=== PATIENT | female | born 1995 | race Caucasian/White ===

== ENCOUNTER 2023-06-09 02:02 | Emergency (ER) | payer MEDICAID, SELFPAY ==
[2023-06-09 02:06] VITALS: BP 105/71; PULSE 85; RESP 18; TEMP 36.5; O2SAT 98; BMI 18.2
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
[2023-06-09 02:46] VITALS: BP 117/70; PULSE 78; RESP 20; O2SAT 97
[2023-06-09 02:55] LABS: HCG Qualitative Urine. Negative (Negative)
[2023-06-09 03:03] LABS: Urine Appearance SL Hazy (CLEAR); Urine Color Light yellow (Yellow)
[2023-06-09 03:04] LABS: Add Urine Culture? No; Add Urine Microscopic? YES; Bacteria Urine 1+ /hpf; Bilirubin Urine Neg (Negative); Blood Urine Neg (Negative); Glucose Urine UA Norm (Normal); Ketones Urine Negative (Negative); Leukocyte Esterase Urine 2+ (Negative); Mucus Urine 2+ /hpf; Nitrate Urine Negative (Negative); Protein Urine Neg (Negative); Specific Gravity, Urine 1.015 (1.005-1.030); Squamous Epithelial Cell Urine 15-25 /hpf (0-5); Urobilinogen Urine Neg (Negative); pH Urine 6.5 (5-7)
[2023-06-09 03:14] VITALS: RESP 18; O2SAT 99
[2023-06-09] MEDS: oxyCODONE-APAP 5-325 mg Tablet 2 TAB PO (03:14)
[2023-06-09 04:10] VITALS: BP 99/73; PULSE 86; RESP 16; O2SAT 97
[2023-06-09 04:32] VITALS: BP 107/62; PULSE 77; RESP 18; O2SAT 98
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
[2023-06-09 04:59] VITALS: BP 103/63; PULSE 80; RESP 18; O2SAT 98
== END 2023-06-09 05:00 | disposition home or self-care (01) ==
PROVIDERS: Emergency Provider Emergency Medicine
DX: S30.0XXA Contusion of lower back and pelvis, initial encounter (principal); Y04.2XXA Assault by strike against or bumped into by another person, initial encounter; Y99.0 Civilian activity done for income or pay; N39.0 Urinary tract infection, site not specified
CPT/HCPCS: 74176; 81001; 81025; 99284

== ENCOUNTER 2025-01-07 11:54 | Emergency (ER) | payer MEDICAID, SELFPAY ==
--- OUTSIDE RECORDS SUMMARY | 2021-07-16 02:00 | XMS_ITS | Continuity of Care Document ---
Author Organization [facility] Address [facility] [address] Phone Care Team Providers Care Car Wash Attendant Automatic Name Role Phone MD BABAK, NEAL Unavailable Unava ilable Allergies, Adverse Reactions, Alerts Substance Reaction Status Criticality No Known Allergies Active No Inform ation Medications Medication Instructions Dosage Effective Dates (start - stop) Status Comments Vitamin 27 mg iron-0.8 mg tablet take 1 tablet by oral route every day - Active Procedures Procedure Date BPP WITH OUT NST DOPPLER VELOCIMETRY, , UMBILICAL AR GEO REPEAT ULTRASOUND BPP WITH OUT NST DOPPLER VELOCIMETRY, , UMBILICAL AR GEO BPP WITH OUT NST DOPPLER VELOCIMETRY, , UMBILICAL AR GEO DOPPLER VELOCIMETRY, , UMBILICAL AR GEO REPEAT ULTRASOUND BPP WITH OUT NST BPP WITH OUT NST DOPPLER VELOCIMETRY, , UMBILICAL AR GEO REPEAT ULTRASOUND BPP WITH OUT NST DOPPLER VELOCIMETRY, , UMBILICAL AR GEO BPP WITH OUT NST DOPPLER VELOCIMETRY, , UMBILICAL AR GEO REPEAT ULTRASOUND BPP WITH OUT NST DOPPLER VELOCIMETRY, , UMBILICAL AR GEO BPP WITH OUT NST DOPPLER VELOCIMETRY, , UMBILICAL AR GEO REPEAT ULTRASOUND BPP WITH OUT NST DOPPLER VELOCIMETRY, , UMBILICAL AR GEO BPP WITH OUT NST DOPPLER VELOCIMETRY, , UMBILICAL AR GEO DOPPLER VELOCIMETRY, , UMBILICAL AR GEO LIMITED ULTRASOUND EST PT, MODERATE VISIT REPEAT ULTRASOUND DOPPLER VELOCIMETRY, , UMBILICAL AR GEO COMPLETE OB US Advance Directives Directive Yes / No Effective Date File Name No Information Encounters Encounter Description Practice Location Reason(s) For Visit Diagnoses Date Provider Providers Copied on Encounter [facility], [address] [place] [address], [id number] , tel:[phone] [facility] Maternal care for other known or suspected poor growthWeeks Gestation of 2 MD NEAL CALLAHAN. [facility] [place], [address], [id number], . tel:[phone] Referring Provider: LISETH DOVE, [address] [place] [address], [id number]. tel:[phone] [facility], [address] [place] [address], [id number] , [phone] [facility] Weeks Gestation of PregnancyMaternal care for other known or suspected poor growth 2 MD NEAL CALLAHAN. [address] [place], [address], [id number], . tel:[phone] Referring Provider: LISETH DOVE, [address] [place] [address], [address]. tel:[phone] [facility], [address] [place] [address] [address], [facility], [place], [id number] , [place] tel: [phone] [facility] Maternal care for other known or suspected poor growthWeeks Gestation of 2 MD NEAL CALLAHAN. [address] [place], [facility] [address], [place], [place], [id number], [place]. tel:[phone] Referring Provider: LISETH DOVE, [address] [place] [address], [address]. tel:[phone] [facility], [address] [place] [address], [facility], [place], [id number] , [place] tel: [phone] [facility] Maternal care for other known or suspected poor growthWeeks Gestation of 2 MD NEAL CALLAHAN. [address] [place], [facility] [address], [place], [id number], [place]. tel:[phone] Referring Provider: LISETH DOVE, [address] [place] [address], [address]. tel:[phone] [facility], [address] [place] [address], [facility], [place], [id number] , [place] tel: [phone] [facility] Weeks Gestation of PregnancyMaternal care for other known or suspected poor growth 2 MD NEAL CALLAHAN. [address] [place], [facility] 100, [place], [place], [id number], [place]. tel:[phone] Referring Provider: LISETH DOVE, [address] [place] [address], [address]. tel:[phone] [facility], [address] [place] [address], [facility] [place], [id number] , [place] tel: [phone] [facility] Weeks Gestation of PregnancyMaternal care for other known or suspected poor growth May- 1 MD JAMMIE BATISTA. [address], [place], [id number], [place]. tel:[phone] Referring Provider: LISETH DOVE, [address] [place] [address], [address]. tel:[phone] [facility], [address] [place] [address], [facility], [place], [id number] , [place] tel:[phone] [facility] Maternal care for other known or suspected poor growthWeeks Gestation of 1 MD JAMMIE BATISTA. [address], [place] [address], [place], [place], [id number], [place]. tel:[phone] Referring Provider: LISETH DOVE, [address] [place] [address], [address]. tel:[phone] [facility], [address] [place] [address], [place], [id number] , [place] tel:[phone] [facility] Weeks Gestation of PregnancyMaternal care for other known or suspected poor growth 1 MD JAMMIE BATISTA. [address], [place], [place], [place], [id number], [place]. [phone] Referring Provider: LISETH DOVE, [address] [place] [address], [address]. tel:[phone] [facility], [address] [place] [address], [place], [id number] , [place] tel:[phone] [facility] Weeks Gestation of PregnancyMaternal care for other known or suspected poor growth 1 MD JAMMIE BATISTA. [address], [place], [id number], [place]. tel:[phone] Referring Provider: LISETH DOVE, [address] [place] [address], [address]. tel:[phone] [facility], [address] [place] [address], [place], [place], [id number] , [place] tel:[phone] [facility] Maternal care for other known or suspected poor growthWeeks Gestation of 1 MD NEAL CALLAHAN. [address] [place], [address], [id number], [place]. tel:[phone] Referring Provider: LISETH PÉREZLS, [address] [place] [address], [address]. tel:[phone] [facility], [address] [place] [address], [place], [place], [id number] , [place] tel:[phone] [facility] Weeks Gestation of PregnancyMaternal care for other known or suspected poor growth 1 MD NEAL CALLAHAN. [address] [place], [address], [id number], [place]. tel:[phone] Referring Provider: LIESTH DOVE, [address] [place] [address], [address]. tel:[phone] [facility], [address] [place] [address], [place], [place], [id number] , [place] tel:[phone] [facility] Maternal care for other known or suspected poor growthWeeks Gestation of 1 MD JAMMIE BATISTA. [address], [place], [place], [id number], [place]. tel:[phone] Referring Provider: LISETH DOVE, [address] [place] [address], [address]. tel:[phone] EST PT, MODERATE VISIT [facility], [address] [place] [address], [facility], [place], [id number] , [place] [phone] [facility] Growth Restriction (IUGR)Supervision of with insufficient careWeeks Gestation of 1 MD NEAL CALLAHAN. [address] [facility], [place], [id number], [place]. tel:[phone] Referring Provider: LISETH DOVE, [address] [place] [address] [place] [address], [address]. tel:[phone] [facility], [address] [place], [place] [address], [place], [place], [id number] , [place] tel:[phone] [facility] Encounter for screening for malformationsWeeks Gestation of PregnancySupervisio n of with insufficient care 1 MD JAMMIE BATISTA. [address] [facility] [place], [id number], [place]. tel:[phone] Referring Provider: LISETH DOVE, [facility]5 [facility] [place] [address] [place] [address], [address]. tel:[phone] Family History Family Member Type Diagnosis Age At Onset No Information Payers Payer name Insurance type Covered libertarian ID Authoriza tigilma(s) [facility] [id number] Social History Type Description Quantity Date Captured Comments Sex Female Smoking Status No Information Vital Signs Date / Time: Height Weight BMI Pulse Rate Blood Pressure Temperature Respiratory Rate Body Surface Area Head Circumference BMI percentile Pulse Ox Inhaled Ox 148.00 lbs Chief Complaint And Reason For Visit No Information History Of Present Illness Encounter Date Complaint History Of Prese nt Illness No Information Instructions Date Instruction Additional Infor mation No Information Assessments Type Assessment Date No Information
--- OUTSIDE RECORDS SUMMARY | 2025-01-07 11:58 | XMS_ITS | Clinical Summary ---
Author Organization [facility] Address [address] [place] [address] Care Team Providers Care Nurses' Registry Director Name Role Phone Unavailable Primary Care Provider Unavailabl e Social History Tobacco Use Types Packs/Day Years Used Date Smoking Tobacco: Never Assessed Comments Unknown Sex and Gender Information Value Date Recorded Sex Assigned at Not on file Legal Sex Female 9:38 AM CDT Gender Identity Not on file Sexual Orientation Not on file Plan of Treatment Not on file
--- OUTSIDE RECORDS SUMMARY | 2025-01-07 11:58 | XMS_ITS | Encounter Summary ---
Author Organization [facility] Address [address] [place] [address] Care Team Providers Care Home Fire Alarm Installer Name Role Phone Unavailable Primary Care Provider Unavailabl e Encounter Details Date Type Department Care Team (Late st Contact Info) Description 07/21/2012 Orders Only [facility] Radiology [address] [facility] [place] [address] System, Provider Not In, [address] [place] [address] Social History Tobacco Use Types Packs/Day Years Used Date Smoking Tobacco: Never Assessed Comments Unknown Sex and Gender Information Value Date Recorded Sex Assigned at Not on file Legal Sex Female 9:38 AM CDT Gender Identity Not on file Sexual Orientation Not on file documented as of this encounter Plan of Treatment Not on file documented as of this encounter Procedures Procedure Name Priority Date/Time Associated Diagnosis Comments OUTSIDE IMAGES 07/21/2012 12:02 PM STONEWORKER documented in this encounter Results * Outside Images (07/21/2012 12:02 PM STONEWORKER) Anatomical Region Laterality Modality N/A Radiographic Shruti ging 07/21/2012 12:0 2 PM STONEWORKER Narrative 07/21/2012 12:02 PM STONEWORKER Historic images from [facility] exist and can be viewed by using the hyperlink to access qualifyor pacs: X-Ray, Knee Procedure Note System, Provider Not In - 06/30/2018 Historic images from [facility] exist and can be viewed by using thehyperlink to access qualifyor pacs: X-Ray, Knee us Provider Not In System MD [facility] Final Result documented in this encounter Visit Diagnoses Not on filedocumented in this encounter
[2025-01-07 12:15] VITALS: BP 100/65; PULSE 70; RESP 17; TEMP 36.7; O2SAT 99; BMI 18.2
--- NOTE | 2025-01-07 14:13 | W.ED.BACK ---
HPI - Back Pain/Injury General: Chief Complaint: Back Pain/Injury Stated Complaint: low back pain Time Seen by Provider: 01/07/25 13:32 History of Present Illness: 29-year-old female presents emergency room complaining of mid back pain intermittent sharp stabbing pain that radiates up to her head she has pain and burning with urination last couple days no fever. She had no sitting rest no cough or shortness of breath. Associated symptoms: Deny abdominal pain, chills, dysuria, fever(s) or urinary urgency Related Data Home Medications ?Medication ?Instructions ?Recorded ?Confirmed No Known Home Medications 01/07/25 01/07/25 Allergies Allergy/AdvReac Type Severity Reaction Status Date / Time No Known Allergies Allergy Verified 01/07/25 12:20 Review of Systems Const: Denies: fever(s) or chills Card: Denies: chest pain Resp: Denies: dyspnea GI: Denies: abdominal pain : Denies: dysuria, urinary frequency or urinary urgency Musc: Denies: neck pain or back pain Skin/Breast: Denies: rash [facility] Female Reproductive History: Date of last menstrual period: 12/26/24 Physical Exam Const: GENERAL APPEARANCE: cooperative ORIENTATION/CONSCIOUSNESS: Yes awake, Yes oriented to person, Yes oriented to place and Yes oriented to time HENMT: COMMON NORMALS: normocephalic, atraumatic and hearing grossly normal bilaterally HEAD & SCALP: normocephalic and atraumatic Resp: COMMON NORMALS: normal respiratory effort, No retractions, No use of accessory muscles and clear to auscultation bilaterally AUSCULTATION: clear to auscultation bilaterally Cardio: COMMON NORMALS: regular rate, regular rhythm and No murmurs present (Cardio) RATE: regular rate RHYTHM: regular rhythm GI: COMMON NORMALS: Soft to palpation and No hepatosplenomegaly present AUSCULTATION: Yes normoactive bowel sounds PALPATION: Yes Soft to palpation, No Tenderness to palpation present (GI), No Guarding due to palpation present (GI) and Yes No hepatosplenomegaly present : BLADDER/KIDNEY EXAM: Yes CVA tenderness Back/Pelvis: GENERAL BACK: Yes CVA tenderness CVA tenderness: left Extremity: COMMON NORMALS: normal to inspection, capillary refill normal, no clubbing, cyanosis or edema, no calf tenderness and no pedal edema Neuro: SENSORIUM/ORIENTATION: Yes oriented to person, Yes oriented to place and Yes oriented to time Skin: COMMON NORMALS: no rashes or lesions noted GENERAL SKIN EXAM: no rashes or lesions noted Course Vital Signs: Vital signs: Vital Signs Temperature 98.1 F 01/07/25 12:15 Pulse Rate 64 01/07/25 17:36 Respiratory Rate 17 01/07/25 12:15 Blood Pressure 114/77 01/07/25 17:36 Pulse Oximetry 99 01/07/25 17:36 Oxygen Delivery Me thod Room Air 01/07/25 14:20 MDM - Back Pain/Injury Medical Decision Making Patient has no sign of varicella-zoster. Initially on exam she appeared to have a pyelonephritis or possibly nephrolithiasis however both of those were excluded by labs and imaging. CT does not show any signs of bowel obstruction there is no fluid in the pelvis suggestive of an ovarian cyst. No cystitis no nephrolithiasis no hernias. Her symptoms are not compatible with nerve impingement at this time. Suspect this is musculoskeletal and lumbar strain she is feeling fine at this point Offered medications patient declined we will discharge her home have her follow-up with her primary care doctor Medical Records I reviewed the patient's medical records. Labs I reviewed the patient's lab results. 01/07/25 13:55 01/07/25 13:55 Radiology Impressions Abdomen/Pelvis CT 01/07/25 14:53 IMPRESSION: 1. No bowel obstruction or inflammatory process associated with the bowel. 2. No free air or significant free fluid in the abdomen or pelvis. 3. No evidence of appendicitis. 4. No hydronephrosis or renal calculus. No stone in the bladder. Laboratory Results WBC 5.99 10^3/uL (3.29-11.43) 01/07/25 13:55 RBC 4.02 10^6/uL (3.85-5.65) 01/07/25 13:55 Hgb 11.30 g/dL (11.27-16.99) 01/07/25 13:55 Hct 35.4 % (36-47) L 01/07/25 13:55 MCV 88.1 fl (85-98) 01/07/25 13:55 MCH 28.1 pg (27-33) 01/07/25 13:55 MCHC 31.9 g/dL (30-55) 01/07/25 13:55 RDW 13.2 % (12.1-15.1) 01/07/25 13:55 Plt Count 278 10^3/cmm (157-399) 01/07/25 13:55 MPV 11.4 fL (7.4-10.4) H 01/07/25 13:55 Neut % (Auto) 68.7 % 01/07/25 13:55 Lymph % (Auto) 20.2 % 01/07/25 13:55 [place] % (Auto) 9.8 % 01/07/25 13:55 Eos % (Auto) 0.5 % 01/07/25 13:55 Baso % (Auto) 0.5 % 01/07/25 13:55 Neut # (Auto) 4.11 10^3/uL (1.8-7.7) 01/07/25 13:55 Lymph # (Auto) 1.2 10^3/uL (0.8-4.8) 01/07/25 13:55 [place] # (Auto) 0.6 10^3/uL (0.2-0.9) 01/07/25 13:55 Eos # (Auto) 0.0 10^3/uL (0.0-0.8) 01/07/25 13:55 Baso # (Auto) 0.0 10^3/uL (0.0-0.1) 01/07/25 13:55 Nucleated RBC % (auto) 0 % 01/07/25 13:55 Nucleated RBCs # 0.0 /100WBC 01/07/25 13:55 Sodium 139 mmol/L (136-145) 01/07/25 13:55 Potassium 4.2 mmol/L (3.5-5.1) 01/07/25 13:55 Chloride 102 mmol/L (98-107) 01/07/25 13:55 Carbon Dioxide 25 mmol/L (22-29) 01/07/25 13:55 Anion Gap 16.2 (5-19) 01/07/25 13:55 BUN 7 mg/dL (6-20) 01/07/25 13:55 Creatinine 0.6 mg/dL (0.5-0.9) 01/07/25 13:55 GFR Calculation 117.4 mL/min (90-130) 01/07/25 13:55 Glucose 78 mg/dL (65-115) 01/07/25 13:55 Calculated Osmolality 285 mOsm/kg (285-295) 01/07/25 13:55 Calcium 9.6 mg/dL (8.5-10.5) 01/07/25 13:55 Total Bilirubin 0.2 mg/dL (0.15-1.2) 01/07/25 13:55 AST 11 U/L (0-32) 01/07/25 13:55 ALT 8 U/L (0-33) 01/07/25 13:55 Alkaline Phosphatase 76 U/L (35-105) 01/07/25 13:55 Total Protein 7.3 g/dL (6.6-8.7) 01/07/25 13:55 Albumin 4.1 g/dL (3.5-5.2) 01/07/25 13:55 Globulin 3.2 g/dL (1.3-4.6) 01/07/25 13:55 HCG, Qual Negative (Negative) 01/07/25 13:55 Urine Color Yellow (Yellow) 01/07/25 13:57 Urine Appearance Clear (CLEAR) 01/07/25 13:57 Urine pH 6.0 (5-7) 01/07/25 13:57 Ur Specific [place] 1.009 (1.005-1.030) 01/07/25 13:57 Urine Protein Negative (Negative) 01/07/25 13:57 Urine Glucose (UA) Negative (Normal) 01/07/25 13:57 Urine Ketones Negative (Negative) 01/07/25 13:57 Urine Blood Negative (Negative) 01/07/25 13:57 Urine Nitrate Negative (Negative) 01/07/25 13:57 Urine Bilirubin Negative (Negative) 01/07/25 13:57 Urine Urobilinogen 0.2 mg/dL (Negative) 01/07/25 13:57 Ur Leukocyte Esterase Trace (Negative) A 01/07/25 13:57 Urine RBC 0-2 /hpf (0-2) 01/07/25 13:57 Urine WBC 0-5 /hpf (0-5) 01/07/25 13:57 Ur Squamous Epith Cells 0-5 /hpf (0-5) 01/07/25 13:57 Amorphous Sediment Not Reportable 01/07/25 13:57 Urine Bacteria None seen /hpf (NONE) 01/07/25 13:57 Hyaline Casts 0-4 /lpf H 01/07/25 13:57 All radiology interpretation(s) finalized by discharge Discharge Plan Discharge Patient Disposition: Home Clinical Impression: Strain of lumbar region Condition: Stable Prescriptions: No Action No Known Home Medications Discharge Orders: Discharge ED (Routine); Ordered 01/07/25 Ordered By: Vlad Bellamy Discharge Diet: Usual diet Discharge Activity: Increase activity as tolerated Patient Instructions: Opioid Safety, Pain Management, Patient Portal & Breezy Instructions Activity Restrictions/Additional Instructions: [facility]. It is very important that you follow up as instructed or that you return to the Emergency Department should you have concerns or if your condition changes or worsens in any way. You are seen emergency room with left flank pain. On evaluation there is no sign of kidney or bladder infection no sign of kidney stones. There is no sign of zoster no other acute abnormalities are noted on your labs or your CT. You can use Tylenol and ibuprofen as needed for discomfort and follow-up with your primary care doctor if not improving Print Language: Georgian Coding Level of Care Code ED Beam Saw Operator for Alissa Chavis
[2025-01-07 14:19] LABS: Hematocrit 35.4 % (36-47); Hemoglobin 11.30 g/dL (11.27-16.99); Mean Corpuscular HGB Conc 31.9 g/dL (30-55); Mean Corpuscular Hemoglobin 28.1 pg (27-33); Mean Corpuscular Volume 88.1 fl (85-98); Nucleated Red Blood Cells % 0 %; Platelet Count 278 10^3/cmm (157-399); Red Blood Count 4.02 10^6/uL (3.85-5.65); White Blood Count 5.99 10^3/uL (3.29-11.43)
[2025-01-07 14:20] VITALS: BP 105/78; PULSE 63; O2SAT 98
[2025-01-07 14:31] LABS: Alanine Aminotransferase 8 U/L (0-33); Albumin Level 4.1 g/dL (3.5-5.2); Alkaline Phosphatase 76 U/L (35-105); Anion Gap 16.2 (5-19); Aspartate Amino Transferase 11 U/L (0-32); Blood Urea Nitrogen 7 mg/dL (6-20); Calcium 9.6 mg/dL (8.5-10.5); Carbon Dioxide 25 mmol/L (22-29); Chloride 102 mmol/L (98-107); Creatinine Clr Calc Pharmacy 130.0256; Globulin 3.2 g/dL (1.3-4.6); Glucose 78 mg/dL (65-115); Osmolality Calculated 285 mOsm/kg (285-295); Potassium 4.2 mmol/L (3.5-5.1); Sodium 139 mmol/L (136-145); Total Protein 7.3 g/dL (6.6-8.7)
[2025-01-07 14:36] LABS: Glucose Urine UA Negative (Normal); Nitrate Urine Negative (Negative); Specific Gravity, Urine 1.009 (1.005-1.030)
[2025-01-07 14:48] LABS: Add Urine Microscopic? YES
--- NOTE | 2025-01-07 14:53 | CTR_ITS ---
PROCEDURE INFORMATION: Exam: CT Abdomen And Pelvis Without Contrast Exam date and time: 01/07/2025 3:45 PM Age: 29 years old Clinical indication: Abdominal pain; Flank; Left; Prior surgery; Surgery date: 6+ months; Surgery type: Tubal; Additional info: Flank pain TECHNIQUE: Imaging protocol: Computed tomography of the abdomen and pelvis without contrast. Radiation optimization: All CT scans at this facility use at least one of these dose optimization techniques: automated exposure control; mA and/or kV adjustment per patient size (includes targeted exams where dose is matched to clinical indication); or iterative reconstruction. COMPARISON: CT abdomen pelvis wo con [id number] 06/09/2023 3:01 AM RADIATION DOSE METRICS: Total DLP (mGy-cm): 348.03 FINDINGS: Liver: Normal. No mass. Gallbladder and biliary ducts: Normal. No calcified stones. No ductal dilation. Pancreas: Normal. No ductal dilation. Spleen: Normal. No splenomegaly. Adrenal glands: Normal. No mass. Kidneys and ureters: Normal. No hydronephrosis. Stomach and bowel: Unremarkable. No obstruction. No mucosal thickening. Appendix: No evidence of appendicitis. Intraperitoneal space: Unremarkable. No free air. No significant fluid collection. Vasculature: Unremarkable. No abdominal aortic aneurysm. Lymph nodes: Unremarkable. No enlarged lymph nodes. Urinary bladder: Unremarkable as visualized. Reproductive: Unremarkable as visualized. Bones/joints: Unremarkable. No acute fracture. Soft tissues: Unremarkable. CT/CT kidney stone [id number] IMPRESSION: 1. No bowel obstruction or inflammatory process associated with the bowel. 2. No free air or significant free fluid in the abdomen or pelvis. 3. No evidence of appendicitis. 4. No hydronephrosis or renal calculus. No stone in the bladder.
[2025-01-07 15:31] LABS: HCG, Serum Qual Negative (Negative)
[2025-01-07 17:36] VITALS: BP 114/77; PULSE 64; O2SAT 99
== END 2025-01-07 17:38 | disposition home or self-care (01) ==
PROVIDERS: Emergency Provider Family Medicine
DX: S39.012A Strain of muscle, fascia and tendon of lower back, initial encounter (principal); X58.XXXA Exposure to other specified factors, initial encounter
CPT/HCPCS: 36415; 74176; 80053; 81001; 84703; 85025; 87040; 96374; 99285; J1885; J7030